=== PATIENT | female | born 1960 | race Caucasian/White ===

== ENCOUNTER 2016-10-28 10:05 | Emergency (ER) | payer OTHER ==
[2016-10-28 10:56] LABS: HEMOGLOBIN 10.4 gm/dl (12.3-15.3); RED BLOOD COUNT 3.46 M/UL (4.00-5.10); WHITE BLOOD COUNT 19.7 K/UL (4.5-11.0)
[2016-10-28 11:21] LABS: BUN/CREATININE RATIO 14 (0-10)
[2016-10-28 14:13] LABS: WHITE BLOOD COUNT 15.6 K/UL (4.5-11.0)
[2016-10-28 14:14] LABS: RED BLOOD COUNT 1.93 M/UL (4.00-5.10)
[2016-10-28 14:15] LABS: HEMOGLOBIN 5.7 gm/dl (12.3-15.3)
[2016-10-28 14:18] LABS: BUN/CREATININE RATIO 20 (0-10)
[2017-02-23] MEDS ORDERED: STOOL SOFT-STI1 EACH PO (07:57)
== END 2016-10-28 14:10 ==
LOC: ER1 10:05
PROVIDERS: Emergency Medicine; Physician Assistant
DX: K85.90 Acute pancreatitis without necrosis or infection, unspecified (principal); S36.09XA Other injury of spleen, initial encounter; E87.6 Hypokalemia; M54.9 Dorsalgia, unspecified; G89.29 Other chronic pain; F17.200 Nicotine dependence, unspecified, uncomplicated
CPT/HCPCS: 31500; 36430; 71010; 74175; 80053; 81001; 82150; 82550; 82553; 83605; 83690; 83874; 84484; 85025; 86850; 86900; 86901; 87040; 87086; 93005; 96361; 96374; 99285; C1751; J2405; J2543; J2550; J7030; J7040; J7050; P9016; Q9962; Q9963

== ENCOUNTER 2016-12-22 04:36 | Inpatient (IN) | payer OTHER ==
[~2016-12-22] VITALS: Ht 162.6 cm; Wt 39.9 kg
[2016-12-22 05:44] LABS: HEMOGLOBIN 15.6 gm/dl (12.3-15.3); RED BLOOD COUNT 5.23 M/UL (4.00-5.10); WHITE BLOOD COUNT 14.4 K/UL (4.5-11.0)
[2016-12-22 05:57] LABS: BUN/CREATININE RATIO 10 (0-10)
[2016-12-22] MEDS ORDERED: ZOFRAN4 MG PO (15:26)
[2016-12-22] MEDS ORDERED: TRAMADOL HCL50 MG PO (15:26)
[2016-12-23 06:37] LABS: HEMOGLOBIN 14.4 gm/dl (12.3-15.3); RED BLOOD COUNT 4.86 M/UL (4.00-5.10)
[2016-12-23 06:40] LABS: WHITE BLOOD COUNT 18.7 K/UL (4.5-11.0)
[2016-12-23 06:55] LABS: BUN/CREATININE RATIO 18 (0-10)
[2016-12-24 05:24] LABS: HEMOGLOBIN 13.9 gm/dl (12.3-15.3); RED BLOOD COUNT 4.7 M/UL (4.00-5.10)
[2016-12-24 05:26] LABS: WHITE BLOOD COUNT 11.6 K/UL (4.5-11.0)
[2016-12-24 05:49] LABS: BUN/CREATININE RATIO 18 (0-10)
[2016-12-24] MEDS ORDERED: PANCREASE PO (12:13)
[2016-12-24] MEDS ORDERED: ENSURE LIQUID237 ML PO (12:14)
[2016-12-24] MEDS ORDERED: PHENERGAN 25 MG25 M1 PO (12:15)
[2017-02-23] MEDS ORDERED: STOOL SOFT-STI1 EACH PO (07:57)
== END 2016-12-24 12:02 | disposition home or self-care (01) | DRG 439 ==
LOC: ER1 04:36 → MED SURG 4 09:47 → ZEROF 09:47 → MED SURG 4 13:13
PROVIDERS: Family Medicine; ADMIT Internal Medicine Infectious Disease
DX: K85.20 Alcohol induced acute pancreatitis without necrosis or infection (principal); E44.0 Moderate protein-calorie malnutrition; Z68.1 Body mass index [BMI] 19.9 or less, adult; K86.0 Alcohol-induced chronic pancreatitis; E87.6 Hypokalemia; D47.3 Essential (hemorrhagic) thrombocythemia; R10.13 Epigastric pain; R11.2 Nausea with vomiting, unspecified; Z90.81 Acquired absence of spleen; I10 Essential (primary) hypertension; F17.210 Nicotine dependence, cigarettes, uncomplicated; F10.21 Alcohol dependence, in remission; K21.9 Gastro-esophageal reflux disease without esophagitis; N28.1 Cyst of kidney, acquired; Z79.891 Long term (current) use of opiate analgesic
CPT/HCPCS: 36415; 76705; 80053; 80061; 80307; 81001; 82150; 82248; 82962; 83605; 83690; 83735; 84132; 84484; 85025; 85027; 93005; 96374; 96375; 99285; C9113; G0480; J2270; J2405; J2550; J3480; J7030; J7050; Q9962

== ENCOUNTER → 2016-12-26 | Outpatient (CLI) | payer OTHER ==
[~2016-12-26] MED LIST: ENSURE LIQUID237 ML PO; PANCREASE PO; PHENERGAN 25 MG25 M1 PO; STOOL SOFT-STI1 EACH PO; TRAMADOL HCL50 MG PO; ZOFRAN4 MG PO
== END ==
LOC: LAB 12:43
DX: F10.21 Alcohol dependence, in remission (principal); D72.829 Elevated white blood cell count, unspecified
CPT/HCPCS: 36415; 71020; 82607; 84425; 86140; 87040